=== PATIENT | male | born 1995 | race Two or more races ===

== ENCOUNTER 2018-07-05 06:44 | Emergency (ER) | payer SELFPAY ==
[~2018-07-05] VITALS: Ht 185.4 cm; Wt 72.6 kg
[2018-07-05] MEDS ORDERED: HYDR25TA PO (07:32)
[2018-07-05] MEDS ORDERED: ALPR0.5T PO (07:32)
--- NOTE | 2018-07-05 07:38 | PHYS DOC ---
Past Medical History Past Medical History: No Pertinent History Past Surgical History: No Surgical History Alcohol Use: Occasionally Social History Narrative: "I used to smoke weed" Adult General Chief Complaint Chief Complaint: ANXIETY/PANIC ATTACK HPI HPI Patient is a 22 year old male who presents with anxiety. States he has been having worsening anxiety symptoms over the last couple of weeks. He denies any stressful events in his life that have precipitated these symptoms. His symptoms primarily consist of anxiety and the sensation that his heart is pounding although he acknowledges that his heart is not beating fast. He presents to the ER today because he states he was unable to sleep all night. He has no prior known history of depression or anxiety. He has no family history of the same. The patient did contact a local [facility] and has a appointment scheduled 4 days from now for an initial evaluation. He does not currently and has never felt suicidal. Patient denies illicit drug use other than some marijuana which she had recently slowed use. Otherwise at baseline health with no chronic health conditions. His review of systems is negative for any other problems. Review of Systems Review of Systems Constitutional: Denies fever or chills Eyes: Denies change in visual acuity HENT: Denies Respiratory: Denies cough or shortness of breath Cardiovascular: No additional information not addressed in HPI GI: Denies abdominal pain : Denies dysuria Musculoskeletal: Denies back pain Integument: Denies rash or skin lesions Neurologic: Denies headache Endocrine: Denies polyuria All other systems were reviewed and found to be within normal limits, except as documented in this note. Current Medications Current Medications Current Medications Medications (Trade) Dose Ordered Sig/Sima Start Time Stop Time Status Last Admin Dose Admin Lorazepam (Ativan) 0.5 mg 1X ONCE 07/05/18 07:15 07/05/18 07:17 DC 07/05/18 07:27 0.5 MG Allergies Allergies Allergies Coded Allergies Type Severity Reaction Last Updated Verified No Known Drug Allergies 07/05/18 No Physical Exam Physical Exam Constitutional: Well developed, well nourished, no acute distress HENT: Normocephalic, atraumatic, bilateral external ears normal, oropharynx moist Eyes: PERRLA, EOMI, conjunctiva normal Neck: Normal range of motion Cardiovascular:Heart rate regular rhythm, no murmur Lungs & Thorax: Bilateral breath sounds clear to auscultation Abdomen: Bowel sounds normal, soft Skin: Warm, dry, no erythema Neurologic: Alert and oriented X 3 Psychologic: Affect normal, judgement normal, mood normal Current Patient Data Vital Signs Vital Signs Date Time Temp Pulse Resp B/P (MAP) Pulse Ox O2 Delivery O2 Flow Rate FiO2 07/05/18 06:50 99.6 88 20 148/70 (96) 98 Room Air 99.6 EKG EKG [] Radiology/Procedures Radiology/Procedures [] Course & Med Decision Making Course & Med Decision Making Pertinent Labs and Imaging studies reviewed. (See chart for details) Patient is evaluated in the emergency department for anxiety. He does not have acute panic or anxiety during the physical examination. He already has scheduled appropriate follow-up for these new symptoms. He is provided a prescription for hydroxyzine to control his symptoms. He is also provided a prescription for Xanax if the hydroxyzine fails. Use of Xanax is explicitly discussed and the patient is also advised of the addictive nature of this medication. Patient seems to understand appropriate use and states he will use the medication sparingly and only as needed. He is lastly advised to return to the ER for any new or worsening symptoms. Dragon Disclaimer Dragon Disclaimer This electronic medical record was generated, in whole or in part, using a voice recognition dictation system. Departure Departure Impression: Primary Impression: Anxiety Disposition: 01 HOME, SELF-CARE Condition: GOOD Patient Instructions: Insomnia, Anxiety and Panic Attacks Scripts Alprazolam (XANAX) 0.5 Mg Tablet 1 TAB PO DAILY, #21 TAB Prov: EL FERNANDES DO 07/05/18 Hydroxyzine Hcl (HYDROXYZINE HCL) 25 Mg Tablet 1 TAB PO TID PRN for ANXIETY, #30 TAB Prov: EL FERNANDES DO 07/05/18 EL FERNANDES DO Jul 05, 2018 07:38
[2018-07-05 07:45] VITALS: BP 130/60
== END 2018-07-05 08:06 | disposition home or self-care (01) ==
LOC: ER 06:44
DX: F41.9 Anxiety disorder, unspecified (principal)
CPT/HCPCS: 96372; 99283; J2060